=== PATIENT | female | born 1955 | race Caucasian/White ===

== ENCOUNTER 2016-08-23 04:49 | Day surgery (SDC) | payer OTHER ==
[2016-08-19 20:38] LABS: HEMATOCRIT 38.1 % (36.0-48.0); HEMOGLOBIN 12.1 g/dL (12.0-16.0)
[2016-08-19 20:53] LABS: CALCIUM, SERUM 9.3 MG/DL (8.5-10.4); CHLORIDE, SERUM 104 MMOL/L (96-112); CO2 (CARBON DIOXIDE) 27 MMOL/L (24-34); CREATININE 0.95 MG/DL (0.55-1.02); GFR AFRICAN AMERICAN 76 ML/MIN (>=60); GFR NON AFRICAN AMERICAN 66 ML/MIN (>=60); GLUCOSE, SERUM 111 MG/DL (60-99); SODIUM, SERUM 142 MMOL/L (135-148)
[2016-08-19 20:54] LABS: BUN (BLOOD UREA NITROGEN) 18 MG/DL (6-23)
--- NOTE | ~2016-08-23 | OP ---
Record Of Operation [facility] [address] [place]. [address] NAME: LUNA ESTRADA : 57 STATUS : [facility]LY [facility] PAT#: [id number] AGE: 60 ADM/REG DATE : 08/23/16 MR#: [id number] REPORT SERV DATE: 08/23/16 DICTATED BY: MEIR GILLILAND DATE: 08/23/16 REPORT STATUS : Draft TRANSCRIBED BY: MODL DATE: 08/23/16 DATE OF PROCEDURE: 08/23/2016 PREOPERATIVE DIAGNOSIS: Right knee severe arthrofibrosis and snapping popliteus tendon. POSTOPERATIVE DIAGNOSIS: Right knee severe arthrofibrosis and snapping popliteus tendon. PROCEDURE: Right knee arthroscopy, debride arthrofibrosis, release popliteus tendon. HIGHWAY WORKER: See chart. DESCRIPTION OF PROCEDURE: The patient was taken to the operating room and placed supine on the table in normal fashion without incident. General anesthetic was induced per the anesthesiologist. The patient was carefully positioned, padded, prepped, and draped in normal sterile fashion. Right lower extremity was carefully exsanguinated. Tourniquet inflated to 350. Two standard arthroscopy portals were placed, medial one under direct visualization. Spinal needle examination of the knee revealed abundant arthrofibrotic tissue meticulously debrided with a shaver and sealed with a contour. Then, I did the same to the opposite portal. I also defined the popliteus tendon release, I was concerned due to snapping. There is also a large snapping band of arthrofibrotic tissue that I debrided with a shaver. It was also sealed with a contour-type device. Before and after pictures were taken. Instruments were removed. Wound was dressed sterilely. I also carefully examined the prosthesis, it all felt to be intact. WTB/DEMETRISL Joleen Gilliland M.D. / [id number] CC: Adamaris Reardon MD
[~2016-08-23 04:49] MED LIST: AMB10 PO; AMOXIL500C PO; ASAB PO; ATIVAN2 MG PO; C5 PO; DSS PO; FLONASE NAS; GLUCCHONDR PO; GLUCOPHXR7 PO; HYZAAR1 TAB PO; JANUVIA100 MG PO; LEVAQUIN750 MG PO; LEVOTHYROXIN88 MCG PO; MCZ25 PO; NORV25 PO; PCET PO; PLAVIX PO; PRAVACHOL80 MG PO; PROTONIX PO; PROVHFA INH; REST15 PO; TYLENOL ARTH650 MG PO; V5 PO; VITD PO; X5 PO; ZETIA PO; ZYRTEC ALLGY10 MG PO
[2017-02-25] MEDS ORDERED: FLONASE NAS (09:06)
[2017-03-07] MEDS ORDERED: MINERAL OIL PO (13:49)
[2017-03-07] MEDS ORDERED: ANUSOL-HC25 MG PR (13:50)
== END 2016-08-23 11:59 | disposition home or self-care (01) ==
LOC: SDC 04:49
PROVIDERS: Specialist
PROC: 0LN Tendons, Release (ICD-10-PCS; 2016-08-23)
PROC: 0SBC4ZZ Excision of Right Knee Joint, Percutaneous Endoscopic Approach (ICD-10-PCS; principal; 2016-08-23 06:45)
DX: M24.661 Ankylosis, right knee (principal); F41.9 Anxiety disorder, unspecified; E11.9 Type 2 diabetes mellitus without complications; E78.00 Pure hypercholesterolemia, unspecified; E03.9 Hypothyroidism, unspecified; K21.9 Gastro-esophageal reflux disease without esophagitis; J45.909 Unspecified asthma, uncomplicated; I10 Essential (primary) hypertension; G47.33 Obstructive sleep apnea (adult) (pediatric); Z90.710 Acquired absence of both cervix and uterus; Z88.0 Allergy status to penicillin; Z88.5 Allergy status to narcotic agent; Z88.8 Allergy status to other drugs, medicaments and biological substances; Z98.890 Other specified postprocedural states
CPT/HCPCS: 36415; 80048; 82962; 85014; 85018; 88304; 93005; A9270-GY; J0690; J2250; J2274; J2405; J3010

== ENCOUNTER 2016-11-12 17:19 | Observation (INO) | payer OTHER ==
--- NOTE | ~2016-11-12 | HP ---
History And Physical [place] [id number] [facility] [place]. [address] NAME: LUNA ESTRADA : 57 STATUS : ADM Emi PAT#: [id number] AGE: 61 ADM/REG DATE : 11/12/16 MR#: [id number] REPORT SERV DATE: 11/13/16 DICTATED BY: DATE: REPORT STATUS : Draft TRANSCRIBED BY: MODL DATE: 11/13/16 DATE OF ADMISSION: 11/12/2016 SERVER ADMINISTRATOR: Dr. Chito Sapp. SIX COLOR PRESS OPERATOR: Dr. Dylon Spencer. NEUROLOGIST: Dr. Christo Peng. CHIEF COMPLAINT: Chest pressure and hypertension. HISTORY OF PRESENT ILLNESS: This is a very pleasant 61-year-old white female without any coronary artery disease, who reports about a month ago, her PCP switched her blood pressure medications from losartan and Norvasc to Cartia. She had kept checking her blood pressure and noticed that in the last three days she was very hypertensive and somewhat tachycardic. She reports her blood pressure was as high as 170s over 107, and her heart rate was in the upper 90s to low 100s. The patient reports to have felt some pressure to her chest as well along with nausea, weakness, and fatigue. She does report that the fatigue is chronic and has had fatigue for about a year. She reports that her blood pressure does decrease and heart rate as well at time of rest. She denies having any chest pain, or any shortness of breath. She does report that with activity, she gets more fatigued; however, she does not have any other change in symptoms or worsening of chest pressure with activity. The patient currently reports that she does not have any chest pain or pressure. She denies any shortness of breath, nausea, vomiting, or abdominal pain. The patient denies any personal history of myocardial infarction, DVT or PE. The patient denies any recent fever or chills. No syncopal episodes. The patient also denies any orthopnea. PAST MEDICAL HISTORY: 1. Hypertension. 2. 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 3. TIA. Last was one and a half years ago. She takes Plavix. 4. Stroke in 2010. 5. Asthma. 6. Hypothyroidism. 7. Hyperlipidemia. 8. Diabetes. PAST SURGICAL HISTORY: 1. Brain tumor removal in 2008. 2. Right total knee. 3. Nose surgery. 4. Hysterectomy. 5. Tonsillectomy. History And Physical [address] [address] NAME: LUNA ESTRADA : 57 STATUS : ADM Emi PAT#: [id number] AGE: 61 ADM/REG DATE : 11/12/16 MR#: [id number] REPORT SERV DATE: 11/13/16 DICTATED BY: DATE: REPORT STATUS : Draft TRANSCRIBED BY: MODL DATE: 11/13/16 6. Lumpectomy x2 from her breast. SOCIAL HISTORY: The patient worked as a front desk agent for 30 years. She is currently disabled. She is and does not have any children. She denies any tobacco use. Denies any alcohol use. Denies any illicit drug use. FAMILY HISTORY: She reports her mother had hypertension, but no cardiac problems. Her father she reports had diabetes, but no cardiac problems. She does report to have had a grandfather that at the age of 61 with a heart attack. REVIEW OF SYSTEMS: A 14-point review of systems was performed significant for HPI, no other contributory diagnosis identified. ALLERGIES: 1. PENICILLIN; REACTION, YEAST INFECTION. 2. NYSTATIN; REACTION, HEART RACES. 3. HYDROCODONE; REACTION, NIGHTMARES. HOME MEDICATIONS: Proventil 2 puffs inhalation daily p.r.n., aspirin 81 p.o. at bedtime, Zyrtec 10 mg p.o. daily p.r.n., Plavix 75 p.o. daily, Cartia XT 120 p.o. daily, Colace 200 mg p.o. at bedtime, vitamin D 50,000 units p.o. Friday, levothyroxine 88 mcg p.o. daily, Ativan 5 mg p.o. three times a day p.r.n., metformin 750 mg p.o. twice a day, Protonix 40 mg p.o. daily, Crestor 20 mg at bedtime, and Ambien 5 mg p.o. at bedtime as needed p.r.n. PHYSICAL EXAMINATION: VITAL SIGNS: Blood pressure 164/91, heart rate 72, temperature 97.9, respirations 18, and O2 saturation 94% on room air. GENERAL: Cooperative, in no apparent distress. HEENT: Head normocephalic, anicteric. Normal EOM. PERRLA. No xanthelasma. Nares patent. Moist mucous membranes. NECK: Trachea midline. No thyromegaly, JVD or bruits. RESPIRATORY: Clear to auscultation bilaterally anterior and posterior. Respirations even and unlabored. No wheezes, rhonchi or crackles. CARDIOVASCULAR: Regular rate and rhythm. No murmur, rub or gallop appreciated. No chest wall tenderness to palpation. ABDOMEN: Soft, nontender, nondistended, normal bowel sounds auscultated throughout. No masses or organomegaly. EXTREMITIES: No peripheral edema. DP/PT and radial pulses palpable bilaterally. No clubbing or cyanosis. SKIN: Warm, dry and intact. Normal turgor. No pallor or cyanosis. NEURO/PSYCH: Alert, oriented x3 with no acute distress. Affect appropriate to current situation. DIAGNOSTIC DATA: EKG shows sinus rhythm, 78 with PVCs x2. electronic device monitor shows sinus rhythm, 83 with frequent PVCs. History And Physical [address] [address] NAME: LUNA ESTRADA : 57 STATUS : ADM Emi PAT#: [id number] AGE: 61 ADM/REG DATE : 11/12/16 MR#: [id number] REPORT SERV DATE: 11/13/16 DICTATED BY: DATE: REPORT STATUS : Draft TRANSCRIBED BY: MODL DATE: 11/13/16 LABORATORY DATA: Troponin x3 less than 0.02. Sodium 136, potassium 3.7, BUN 13, creatinine 0.92, GFR 78, glucose 94, calcium 9.4, and magnesium 2.1. White blood cells 11.0, hemoglobin 12.4, hematocrit 38.5, and platelets 463. INR 1.0. TSH 2.120. ASSESSMENT AND PLAN: 1. Chest pressure. The patient denies any chest pain. She reports that her chest pressure has resolved. Troponins x3 have been negative. Her cardiac risk factors include hypertension, hyperlipidemia, and diabetes. The patient has been observed in the CPOU to rule out myocardial infarction with serial enzymes and serial EKGs. She will be held n.p.o. and we will plan an MPI today, if the stress test shows low risk or no ischemia, RN may discharge the patient home. The patient will be asked to follow up with her PCP in one to two weeks with all the studies being sent to that office. If anything suggestive of ischemia, Cardiology referral will be initiated. 2. Hypertension. The patient reports that she was only aware of the hypertension due to checking her blood pressure frequently. Due to the patient's increase in blood pressure, we will continue her Cartia and restart her home dose of Norvasc at 2.5 mg p.o. daily. The patient does report that she was taking losartan 100 mg p.o. daily and Norvasc 2.5 mg p.o. daily with a stable blood pressure reading; however, her PCP stopped that about a month ago, and switched her to Cartia, and she reports ever since then she has been monitoring her blood pressure and it appears to be elevated. I will defer her management and treatment of her blood pressure to her primary care physician as I stated I will continue her Cartia, and restart her Norvasc at the dose that she had at home 2.5 p.o. daily for some control prior to seeing her PCP. 3. Hyperlipidemia. The patient is on a statin. 4. History of a transient ischemic attack, no neurological changes noted. The patient reports last transient ischemic attack was one and a half years ago. She appears to be stable. We will continue to monitor and defer to PCP and Neurology for further management and treatment. She is also on Plavix. 5. Hypothyroidism. The patient is on levothyroxine. We will defer management to the patient's motor rebuilder. 6. Diabetes. The patient is on a sliding scale insulin. We will hold her metformin during her stay here. She will follow up with her motor rebuilder for further management and care. EKS/MODL Galilea Whitehead APN / [id number] CC: Michelle Dhillon, MSN, ORCHESTRA TEACHER-BC Dylon Law MD
[2016-11-12 17:58] LABS: BASOPHILS 0.9 %; EOSINOPHILS 4.5 %; HEMATOCRIT 38.5 % (36.0-48.0); HEMOGLOBIN 12.4 g/dL (12.0-16.0); IMMATURE GRANULOCYTES 0.6 %; IMMATURE GRANULOCYTES ABSOLUTE 0.07 10/3/uL (0.0-0.11); LYMPHOCYTES ABSOLUTE 2.54 10/3/uL (0.67-4.30); MANUAL DIFF NO %; MEAN CORPUS HGB CONC 32.2 g/dL (32.0-36.0); MEAN CORPUSCULAR VOLUME 83.7 fL (80-100); MEAN PLATELET VOLUME 9.4 fL (9.2-13.0); MONOCYTES 6.6 %; MONOCYTES ABSOLUTE 0.73 10/3/uL (0.21-1.20); NEUTROPHILS 64.4 %; NEUTROPHILS ABSOLUTE 7.09 10/3/uL (2.02-8.40); PLATELET COUNT 463 10/3/uL (150-400); RBC DISTRIBUTION WIDTH 15.6 % (12.0-16.0)
[2016-11-12 18:07] LABS: PARTIAL THROMBO TIME 31.7 SEC (22.5-37.2)
[2016-11-12 18:08] LABS: PROTIME (NOT ORD) 13.3 SEC (12.0-14.5)
[2016-11-12 18:22] LABS: BUN (BLOOD UREA NITROGEN) 13 MG/DL (6-23); CALCIUM, SERUM 9.4 MG/DL (8.5-10.4); CHEST PAIN PROFILE TAT 0 Hrs 30 Mins; CHLORIDE, SERUM 105 MMOL/L (96-112); CO2 (CARBON DIOXIDE) 29 MMOL/L (24-34); CREATININE 0.92 MG/DL (0.55-1.02); GFR AFRICAN AMERICAN 78 ML/MIN (>=60); GFR NON AFRICAN AMERICAN 68 ML/MIN (>=60); GLUCOSE, SERUM 94 MG/DL (60-99); POTASSIUM, SERUM 3.7 MMOL/L (3.5-5.3); SODIUM, SERUM 136 MMOL/L (135-148); TROPONIN I <0.02 NG/ML (<0.05)
[2016-11-12 18:29] LABS: ASCORBIC ACID (UR NOT ORDER) NEG (NEG); BILIRUBIN, URINE NEGATIVE (NEG); ER URINALYSIS TAT 0 Hrs 37 Mins; KETONE, URINE NEGATIVE (NEG); LEUKOCYTE ESTERASE(NOT OR SMALL (NEG); NITRITE (URINE) NEG (NEG); WBC (NOT ORDERED) (RFLEX) 4 (0-5)
[2016-11-12] MEDS ORDERED: COZAAR100 MG PO (19:43)
[2016-11-12] MEDS ORDERED: LEVOTHYROXIN88 MCG PO (19:44)
[2016-11-12] MEDS ORDERED: PLAVIX PO (19:44)
[2016-11-12] MEDS ORDERED: PROTONIX PO (19:45)
[2016-11-12] MEDS ORDERED: GLUCOPHXR7 PO (19:46)
[2016-11-12] MEDS ORDERED: ATIVAN2 MG PO (19:47)
[2016-11-12] MEDS ORDERED: ASAB PO (19:47)
[2016-11-12] MEDS ORDERED: DSS PO (19:47)
[2016-11-12] MEDS ORDERED: AMB5 PO (19:48)
[2016-11-12] MEDS ORDERED: VITD PO (19:48)
[2016-11-12] MEDS ORDERED: PROVHFA INH (19:49)
[2016-11-12] MEDS ORDERED: CRESTOR20 MG PO (19:49)
[2016-11-12] MEDS ORDERED: ZYRTEC ALLGY10 MG PO (19:49)
[2016-11-13] MEDS ORDERED: NORV25 PO (16:10)
[2017-02-25] MEDS ORDERED: FLONASE NAS (09:06)
[2017-03-07] MEDS ORDERED: MINERAL OIL PO (13:49)
[2017-03-07] MEDS ORDERED: ANUSOL-HC25 MG PR (13:50)
== END 2016-11-13 16:38 | disposition home or self-care (01) ==
LOC: ER 17:19 → CDU1 19:30
PROVIDERS: Emergency Medicine
DX: R07.89 Other chest pain (principal); I10 Essential (primary) hypertension; E78.5 Hyperlipidemia, unspecified; Z86.73 Personal history of transient ischemic attack (TIA), and cerebral infarction without residual deficits; E03.9 Hypothyroidism, unspecified; E11.9 Type 2 diabetes mellitus without complications; J45.909 Unspecified asthma, uncomplicated; Z90.710 Acquired absence of both cervix and uterus; Z98.890 Other specified postprocedural states; Z88.0 Allergy status to penicillin; Z88.5 Allergy status to narcotic agent; Z88.8 Allergy status to other drugs, medicaments and biological substances; Z79.82 Long term (current) use of aspirin; Z79.84 Long term (current) use of oral hypoglycemic drugs; Z79.899 Other long term (current) drug therapy
CPT/HCPCS: 71010; 78452; 80048; 81001; 82962; 83735; 84443; 84484; 85025; 85610; 85730; 87086; 93005; 93017; 96374; 99285; A9270-GY; A9502; G0378; J1250; J2405